=== PATIENT | female | born 1970 | race African-American/Black ===

== ENCOUNTER 2017-04-30 14:14 | Inpatient (IN) | payer OTHER ==
[2017-04-30 16:02] VITALS: BMI 23.6
--- NOTE | 2017-04-30 17:20 | HP ---
Admission [facility] Chief Complaint: REHAB SERVICES Allergies/Adverse Reactions: Allergies Allergy/AdvReac Type Severity Reaction Status Date / Time No Known Allergies Allergy Verified 04/30/17 16:35 History of Present Illness: 46 Y.O. WOMAN WITH A HISTORY OF ALCOHOL, CRACK AND MARIJUANA DEPENDENCE IS HERE SEEKING REHAB SERVICES. SHE REPORTS SHE COMPLETED DETOX AT [facility] ON 03/2017. DOES NOT HAVE A SIGNIFICANT PERIOD CLEAN. Exam Limitations: Physical Impairment - Ebola screening Have you traveled outside of the country in the last 21 days: No Have you had contact with anyone from an Ebola affected area: No Have you been sick,other than usual withdrawal symptoms: No Do you have a fever: No - Review of Systems Constitutional: Unintentional Wgt. Loss EENT: reports: No Symptoms Reported Respiratory: reports: No Symptoms reported Cardiac: reports: No Symptoms Reported GI: reports: No Symptoms Reported : reports: No Symptoms Reported Musculoskeletal: reports: Joint Pain, Other (TORN LIGAMENTS TO B/L KNEES) Integumentary: reports: No Symptoms Reported Neuro: reports: No Symptoms reported Endocrine: reports: No Symptoms Reported Hematology: reports: No Symptoms Reported Psychiatric: reports: Judgement Intact, Mood/Affect Appropiate, Orientated x3, Depressed, other (BIPOLAR) Other Systems: Reviewed and Negative Patient History - Patient Medical History Hx Anemia: No Hx Asthma: No Hx Chronic Obstructive Pulmonary Disease (COPD): No Hx Cancer: No Hx Cardiac Disorders: No Hx Congestive Heart Failure: No Hx Hypertension: Yes Hx Hypercholesterolemia: No Hx Pacemaker: No HX Cerebrovascular Accident: No Hx Seizures: No Hx Dementia: No Hx Diabetes: No Hx Gastrointestinal Disorders: No Hx Liver Disease: No Hx Genitourinary Disorders: No Hx Sexually Transmitted Disorders: No Hx Renal Disease (ESRD): No Hx Thyroid Disease: No Hx Human Immunodeficiency Virus (HIV): Yes (DX: 2007) Hx Hepatitis C: No Hx Depression: Yes Hx Suicide Attempt: No Hx Bipolar Disorder: Yes Hx Schizophrenia: No - Patient Surgical History Past Surgical History: No Hx Neurologic Surgery: No Hx Cataract Extraction: No Hx Cardiac Surgery: No Hx Lung Surgery: No Hx Breast Surgery: No Hx Breast Biopsy: No Hx Abdominal Surgery: No Hx Appendectomy: No Hx Cholecystectomy: No Hx Genitourinary Surgery: No Hx Section: No Hx Orthopedic Surgery: No Anesthesia Reaction: No - PPD History Previous Implant?: Yes Documented Results: Negative w/o proof Implanted On Prior [facility] Admission?: No PPD to be Administered?: Yes - Reproductive History Patient is a Female of Child Bearing Age (11 -55 yrs old): No Last Menstrual Period: 04/30/17 Patient : No - Smoking Cessation Smoking history: Current every day smoker Have you smoked in the past 12 months: Yes Aproximately how many cigarettes per day: 5 Hx Chewing Tobacco Use: No Initiated information on smoking cessation: Yes 'Breaking Loose' booklet given: 04/30/17 - Substance & Tx. History Hx Alcohol Use: Yes Hx Substance Use: Yes Substance Use Type: Alcohol, Cocaine, Marijuana - Substances Abused Crack Route: Smoking Frequency: Daily Amount used: $50 Age of first use: 13 Date of Last Use: 04/28/17 Alcohol-beer Route: Oral Frequency: 1-2 times per week Amount used: 3-4 (22 oz.) Age of first use: 13 Date of Last Use: 05/05/17 Marijuana Route: Smoking Frequency: Daily Amount used: $5 Age of first use: 13 Date of Last Use: 04/30/17 Family Disease History - Family Disease History Family History: Denies Admission Physical Exam S - Vital Signs Vital Signs: Vital Signs - 24 hr 04/30/17 15:55 Temperature 98.3 F Pulse Rate 92 H Respiratory 20 Rate Blood Pressure 104/68 - Physical General Appearance: Yes: Disheveled, Anxious HEENTM: Yes: Hearing grossly Normal, Normal ENT Inspection, Normocephalic Respiratory: Yes: Chest Non-Tender, Lungs Clear, Normal Breath Sounds, No Respiratory Distress Neck: Yes: No masses,lesions,Nodules, Trachea in good position Breast: Yes: Breast Exam Deferred Cardiology: Yes: Regular Rhythm, Regular Rate Abdominal: Yes: Normal Bowel Sounds, Non Tender, Flat Genitourinary: Yes: Other (NO COMPLAINTS REPORTED) Back: Yes: Normal Inspection Musculoskeletal: Yes: Joint Stiffness, Other (UNSTEADY GAIT) Extremities: Yes: Normal Capillary Refill, Normal Inspection, Normal Range of Motion, Non-Tender Neurological: Yes: manager cath lab II-XII NML intact, Fully Oriented, Alert, Motor Strength 5/5, Normal Mood/Affect, Normal Response Integumentary: Yes: Normal Color, Dry, Warm Lymphatic: Yes: Within Normal Limits - Diagnostic (1) Alcohol dependence with uncomplicated withdrawal Current Visit: Yes Status: Chronic (2) Cocaine dependence Current Visit: Yes Status: Chronic (3) Weight loss, unintentional Current Visit: Yes Status: Chronic (4) Cannabis dependence, uncomplicated Current Visit: Yes Status: Chronic (5) HIV (human immunodeficiency virus infection) Current Visit: Yes Status: Chronic (6) Hypertension Current Visit: Yes Status: Chronic (7) Nicotine dependence Current Visit: Yes Status: Chronic Cleared for Admission [facility] - Detox or Rehab [facility] Level of Care: Observation Bed Claeared for Rehab Admission: Yes [facility] Breath Alcohol Content Breath Alcohol Content: 0 Urine Pregancy Test - Result Urine Test Results: Negative- NO Line Present Urine Drug Screen - Results Drug Screen Negative: No Urine Drug Screen Results: THC-Marijuana, NOAH-Cocaine, TCA-Tricyclic Antidepress Inpatient Rehab Admission - Initial Determination Are CD services needed?: Yes Free of communicable disease: No Not in need of hospitalization: Yes - Rehab Admission Criteria Previous failed treatment: Yes Poor recovery environment: Yes Comorbidities: Yes Lacks judgement: No Patient is meeting Inpatient Rehab admission criteria:: Yes
[2017-04-30] MEDS ORDERED: guaiFENesin/D-METHORPHAN HB 10 ML UNIT-DOSE CUPS PO PRN (17:34)
[2017-04-30] MEDS ORDERED: MAG HYDROX/AL HYDROX/SIMETH 30 ML UNIT-DOSE CUP PO PRN (17:34)
[2017-04-30] MEDS ORDERED: LOPERAMIDE HCL 2 MG CAPSULE PO PRN (17:34)
[2017-04-30] MEDS ORDERED: MAGNESIUM HYDROX 2400MG/30ML ORAL SUSPENSION 30 ML CUP PO PRN (17:34)
[2017-04-30] MEDS ORDERED: MENTHOL/PHENOL 1 EACH UD MM PRN (17:34)
[2017-04-30] MEDS ORDERED: IBUPROFEN 400 MG TABLET (FP) PO PRN (17:34)
[2017-04-30] MEDS ORDERED: MAGNESIUM CITRATE 300 ML BOTTLE PO PRN (17:34)
[2017-04-30] MEDS ORDERED: P-EPHED 60MG/TRIPROLIDI 2.5MG TABLET PO PRN (17:34)
[2017-04-30 20:59] LABS: URINE APPEARANCE TURBID; URINE BILIRUBIN NEGATIVE (NEGATIVE); URINE BLOOD 2+ (NEGATIVE); URINE COLOR YELLOW; URINE GLUCOSE (UA) NEGATIVE (NEGATIVE); URINE KETONE TRACE (NEGATIVE); URINE LEUK ESTERASE TRACE (NEGATIVE); URINE NITRITE NEGATIVE (NEGATIVE)
[2017-04-30 21:01] LABS: URINE PROTEIN 1+ (NEGATIVE)
[2017-04-30 21:28] LABS: AMORP URATES MANY /hpf (NONE SEEN)
[2017-04-30] MEDS: THIAMINE HCL 100 MG TABLET (FP) PO SCH (21:30)
[2017-04-30] MEDS: QUEtiapine FUMARATE 300 MG TABLET PO SCH (21:31)
[2017-04-30] MEDS: PATIENT'S OWN MEDICATION (NON-FORMULARY) (Ibuprofen [Ibuprofen] 800 MG) PO PRN (21:51)
[2017-05-01] MEDS ORDERED: COLLOIDAL OATMEAL 1 BAR EACH TP PRN (00:08)
[2017-05-01] MEDS: QUEtiapine FUMARATE 200 MG TABLET PO SCH (06:49)
[2017-05-01] MEDS: PATIENT'S OWN MEDICATION (NON-FORMULARY) (Ibuprofen [Ibuprofen] 800 MG) PO PRN (06:50)
[2017-05-01] MEDS ORDERED: PT OWN MED DRAWER 7, Y5N ONE (06:51)
[2017-05-01] MEDS: PRENATAL VITAMINS W/ FOLIC ACID TABLET (FP) PO SCH (09:57)
[2017-05-01] MEDS: NIFEdipine E.R. 30 MG TABLET (FP) PO SCH (09:58)
[2017-05-01] MEDS: PATIENT'S OWN MEDICATION (NON-FORMULARY) (Efavirenz/Emtricitab/Tenofovir 1 TAB) PO SCH (09:58)
[2017-05-01] MEDS: [UNRECOGNIZED DRUG - OTHER] PO SCH (09:59)
[2017-05-01] MEDS: CHOLECALCIFEROL PO SCH (09:59)
[2017-05-01] MEDS: NICOTINE 21 MG/24 HOURS TOPICAL PATCH TD SCH (09:59)
[2017-05-01 11:08] LABS: CHLORIDE 107 mmol/L (98-107); SODIUM 139 mmol/L (136-145)
[2017-05-01 11:09] LABS: HEMATOCRIT 38.7 % (32.4-45.2); HEMOGLOBIN 12.1 GM/dL (10.7-15.3); MCH 27.4 pg (25.7-33.7); MCHC 31.2 g/dl (32.0-36.0); MEAN CELL VOLUME 87.7 fl (80-96); MEAN PLT VOLUME 8.7 fl (7.5-11.1); PLATELET COUNT 264 K/MM3 (134-434); RBC 4.41 M/mm3 (3.60-5.2); RDW 15.5 % (11.6-15.6); WHITE BLOOD COUNT 4.4 K/mm3 (4.0-10.0)
[2017-05-01 11:13] LABS: ALBUMIN 3.5 g/dl (3.4-5.0); ALK PHOS 77 U/L (45-117); ANION GAP 7 (8-16); BILIRUBIN,TOTAL 0.2 mg/dL (0.2-1.0); BLOOD UREA NITROGEN 16 mg/dL (7-18); CALCIUM 8.8 mg/dL (8.5-10.1); CO2 25 mmol/L (21-32); CREATININE 0.9 mg/dL (0.55-1.02); GLUCOSE,RANDOM 94 mg/dL (74-106); SGOT/AST 27 U/L (15-37); SGPT/ALT 21 U/L (12-78)
[2017-05-01] MEDS: hydrOXYzine PAMOATE 50 MG CAPSULE (FP) PO PRN ×2 (13:14→18:07)
[2017-05-01] MEDS: ACETAMINOPHEN 325 MG TABLET (FP) PO PRN (13:14)
--- NOTE | 2017-05-01 13:37 | EKG ---
Test Reason : Blood Pressure : / mmHG Vent. Rate : 085 BPM Atrial Rate : 085 BPM P-R Int : 166 ms QRS Dur : 072 ms QT Int : 340 ms P-R-T Axes : 082 058 052 degrees QTc Int : 404 ms NORMAL SINUS RHYTHM POSSIBLE LEFT ATRIAL ENLARGEMENT LEFT VENTRICULAR HYPERTROPHY NONSPECIFIC T WAVE ABNORMALITY ABNORMAL ECG Confirmed by LUCIO DE SOUZA MD ([id number]) on 05/01/2017 1:37:06 PM Referred By: Confirmed By:LUCIO DE SOUZA MD
--- NOTE | 2017-05-01 13:38 | EKG ---
Test Reason : Blood Pressure : / mmHG Vent. Rate : 094 BPM Atrial Rate : 094 BPM P-R Int : 156 ms QRS Dur : 076 ms QT Int : 360 ms P-R-T Axes : 071 047 112 degrees QTc Int : 450 ms NORMAL SINUS RHYTHM MODERATE VOLTAGE CRITERIA FOR LVH, MAY BE NORMAL VARIANT NONSPECIFIC ST ABNORMALITY ABNORMAL ECG NO PREVIOUS ECGS AVAILABLE Confirmed by LUCIO DE SOUZA MD ([id number]) on 05/01/2017 1:37:55 PM Referred By: Confirmed By:LUCIO DE SOUZA MD
[2017-05-01] MEDS: QUEtiapine FUMARATE 300 MG TABLET PO SCH (21:28)
[2017-05-01] MEDS: THIAMINE HCL 100 MG TABLET (FP) PO SCH (21:28)
[2017-05-02] MEDS: QUEtiapine FUMARATE 200 MG TABLET PO SCH (06:55)
[2017-05-02] MEDS: [UNRECOGNIZED DRUG - OTHER] PO SCH (09:51)
[2017-05-02] MEDS: CHOLECALCIFEROL PO SCH (09:51)
[2017-05-02] MEDS: PATIENT'S OWN MEDICATION (NON-FORMULARY) (Efavirenz/Emtricitab/Tenofovir 1 TAB) PO SCH (09:51)
[2017-05-02] MEDS: NIFEdipine E.R. 30 MG TABLET (FP) PO SCH (09:51)
[2017-05-02] MEDS: PRENATAL VITAMINS W/ FOLIC ACID TABLET (FP) PO SCH (09:51)
[2017-05-02] MEDS: NICOTINE 21 MG/24 HOURS TOPICAL PATCH TD SCH (09:52)
[2017-05-02] MEDS: hydrOXYzine PAMOATE 50 MG CAPSULE (FP) PO PRN ×2 (10:40→15:49)
[2017-05-02] MEDS: PATIENT'S OWN MEDICATION (NON-FORMULARY) (Ibuprofen [Ibuprofen] 800 MG) PO PRN (10:40)
[2017-05-02] MEDS: ACETAMINOPHEN 325 MG TABLET (FP) PO PRN (15:49)
[2017-05-02] MEDS: THIAMINE HCL 100 MG TABLET (FP) PO SCH (21:22)
[2017-05-02] MEDS: QUEtiapine FUMARATE 300 MG TABLET PO SCH (21:22)
[2017-05-03] MEDS: QUEtiapine FUMARATE 200 MG TABLET PO SCH (06:05)
[2017-05-03] MEDS: [UNRECOGNIZED DRUG - OTHER] PO SCH (10:41)
[2017-05-03] MEDS: PATIENT'S OWN MEDICATION (NON-FORMULARY) (Efavirenz/Emtricitab/Tenofovir 1 TAB) PO SCH (10:41)
[2017-05-03] MEDS: CHOLECALCIFEROL PO SCH (10:41)
[2017-05-03] MEDS: PRENATAL VITAMINS W/ FOLIC ACID TABLET (FP) PO SCH (10:41)
[2017-05-03] MEDS: NIFEdipine E.R. 30 MG TABLET (FP) PO SCH (10:41)
[2017-05-03] MEDS: NICOTINE 21 MG/24 HOURS TOPICAL PATCH TD SCH (10:42)
[2017-05-03] MEDS ORDERED: PT OWN MED DRAWER 7, Y5N ONE ×2 (10:49→12:16)
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
[2017-05-03] MEDS: hydrOXYzine PAMOATE 50 MG CAPSULE (FP) PO PRN ×2 (12:17→21:25)
[2017-05-03] MEDS: PATIENT'S OWN MEDICATION (NON-FORMULARY) (Ibuprofen [Ibuprofen] 800 MG) PO PRN (12:17)
[2017-05-03] MEDS: THIAMINE HCL 100 MG TABLET (FP) PO SCH (21:24)
[2017-05-03] MEDS: QUEtiapine FUMARATE 300 MG TABLET PO SCH (21:24)
[2017-05-04] MEDS: QUEtiapine FUMARATE 200 MG TABLET PO SCH (06:33)
[2017-05-04] MEDS ORDERED: cloNIDine HCL 0.1 MG TABLET PO ONE (07:28)
[2017-05-04] MEDS: CHOLECALCIFEROL PO SCH (10:16)
[2017-05-04] MEDS: PATIENT'S OWN MEDICATION (NON-FORMULARY) (Efavirenz/Emtricitab/Tenofovir 1 TAB) PO SCH (10:16)
[2017-05-04] MEDS: [UNRECOGNIZED DRUG - OTHER] PO SCH (10:16)
[2017-05-04] MEDS: PRENATAL VITAMINS W/ FOLIC ACID TABLET (FP) PO SCH (10:17)
[2017-05-04] MEDS: NICOTINE 21 MG/24 HOURS TOPICAL PATCH TD SCH (10:17)
[2017-05-04] MEDS: NIFEdipine E.R. 30 MG TABLET (FP) PO SCH (10:17)
[2017-05-04] MEDS: hydrOXYzine PAMOATE 50 MG CAPSULE (FP) PO PRN ×2 (10:19→21:26)
[2017-05-04] MEDS: QUEtiapine FUMARATE 300 MG TABLET PO SCH (21:26)
[2017-05-04] MEDS: THIAMINE HCL 100 MG TABLET (FP) PO SCH (21:26)
[2017-05-05] MEDS ORDERED: cloNIDine HCL 0.1 MG TABLET PO ONE (06:23)
[2017-05-05] MEDS ORDERED: cloNIDine HCL 0.1 MG TABLET PO PRN (06:23)
[2017-05-05] MEDS: QUEtiapine FUMARATE 200 MG TABLET PO SCH (06:28)
[2017-05-05] MEDS: hydrOXYzine PAMOATE 50 MG CAPSULE (FP) PO PRN ×3 (06:28→21:28)
[2017-05-05] MEDS: PATIENT'S OWN MEDICATION (NON-FORMULARY) (Ibuprofen [Ibuprofen] 800 MG) PO PRN ×2 (09:43→21:57)
[2017-05-05] MEDS: PRENATAL VITAMINS W/ FOLIC ACID TABLET (FP) PO SCH (09:44)
[2017-05-05] MEDS: [UNRECOGNIZED DRUG - OTHER] PO SCH (09:44)
[2017-05-05] MEDS: PATIENT'S OWN MEDICATION (NON-FORMULARY) (Efavirenz/Emtricitab/Tenofovir 1 TAB) PO SCH (09:44)
[2017-05-05] MEDS: CHOLECALCIFEROL PO SCH (09:44)
[2017-05-05] MEDS: NICOTINE 21 MG/24 HOURS TOPICAL PATCH TD SCH (09:44)
[2017-05-05] MEDS: NIFEdipine E.R. 30 MG TABLET (FP) PO SCH (09:44)
[2017-05-05] MEDS: THIAMINE HCL 100 MG TABLET (FP) PO SCH (21:28)
[2017-05-05] MEDS: QUEtiapine FUMARATE 300 MG TABLET PO SCH (21:28)
[2017-05-05] MEDS ORDERED: PT OWN MED DRAWER 7, Y5N ONE (21:56)
[2017-05-06] MEDS: QUEtiapine FUMARATE 200 MG TABLET PO SCH (07:00)
[2017-05-06] MEDS: hydrOXYzine PAMOATE 50 MG CAPSULE (FP) PO PRN ×2 (07:00→21:19)
[2017-05-06] MEDS: PRENATAL VITAMINS W/ FOLIC ACID TABLET (FP) PO SCH (10:16)
[2017-05-06] MEDS: PATIENT'S OWN MEDICATION (NON-FORMULARY) (Efavirenz/Emtricitab/Tenofovir 1 TAB) PO SCH (10:17)
[2017-05-06] MEDS: NICOTINE 21 MG/24 HOURS TOPICAL PATCH TD SCH (10:17)
[2017-05-06] MEDS: CHOLECALCIFEROL PO SCH (10:17)
[2017-05-06] MEDS: NIFEdipine E.R. 30 MG TABLET (FP) PO SCH (10:17)
[2017-05-06] MEDS: [UNRECOGNIZED DRUG - OTHER] PO SCH (10:17)
[2017-05-06] MEDS: PANTOPRAZOLE 40 MG TABLET (FP) PO SCH (14:42)
[2017-05-06] MEDS: NAPROXEN 500 MG TABLET (FP) PO SCH ×2 (14:42→21:19)
[2017-05-06] MEDS: GABAPENTIN 100 MG CAPSULE (FP) PO SCH ×2 (14:43→21:19)
[2017-05-06] MEDS: CYCLOBENZAPRINE HCL 10 MG TABLET (FP) PO SCH ×2 (14:43→21:19)
[2017-05-06] MEDS ORDERED: PT OWN MED DRAWER 7, Y5N ONE (14:46)
[2017-05-06] MEDS: QUEtiapine FUMARATE 300 MG TABLET PO SCH (21:19)
[2017-05-06] MEDS: cloNIDine HCL 0.1 MG TABLET PO SCH (21:19)
[2017-05-06] MEDS: THIAMINE HCL 100 MG TABLET (FP) PO SCH (21:19)
--- NOTE | 2017-05-06 21:51 | PN ---
YONI Progress Note Note: INFORMED BY RN CLIENT FELL. CLIENT STATES SHE LOST HER BALANCE AND SLIPPED AND FELL ON HER BUTTOCKS. DENIES HEAD TRAUMA, C/O CHRONIC KNEE PAIN. A/O X 3 NAD NO PHYSICAL INJURIES NOTED SKIN INTACT FROM X4 NO LIMITATION NOTED CANE NOTED AT BEDSIDE. Vital Signs - 24 hr 05/06/17 05/06/17 05/06/17 07:37 09:15 21:49 Temperature 97.8 F 98.3 F Pulse Rate 76 114 H 89 Respiratory 18 20 Rate Blood Pressure 137/94 128/77 143/88 05/06/17 05/07/17 05/07/17 22:22 00:15 00:30 Temperature 98.3 F Pulse Rate 89 78 Respiratory 20 18 Rate Blood Pressure 143/88 140/80 05/07/17 05/07/17 02:15 03:30 Temperature 97.4 F L Pulse Rate 81 Respiratory 19 18 Rate Blood Pressure 143/82 S/P REPORTED FALL FALL PROTOCOL #2
[2017-05-07] MEDS: GABAPENTIN 100 MG CAPSULE (FP) PO SCH ×3 (06:57→21:19)
[2017-05-07] MEDS: CYCLOBENZAPRINE HCL 10 MG TABLET (FP) PO SCH ×3 (06:57→21:19)
[2017-05-07] MEDS: QUEtiapine FUMARATE 200 MG TABLET PO SCH (06:57)
[2017-05-07] MEDS: hydrOXYzine PAMOATE 50 MG CAPSULE (FP) PO PRN (06:58)
[2017-05-07] MEDS ORDERED: PT OWN MED DRAWER 7, Y5N ONE ×2 (08:14→15:21)
[2017-05-07] MEDS: [UNRECOGNIZED DRUG - OTHER] PO SCH (09:44)
[2017-05-07] MEDS: CHOLECALCIFEROL PO SCH (09:44)
[2017-05-07] MEDS: PRENATAL VITAMINS W/ FOLIC ACID TABLET (FP) PO SCH (09:44)
[2017-05-07] MEDS: NAPROXEN 500 MG TABLET (FP) PO SCH ×2 (09:44→21:19)
[2017-05-07] MEDS: PATIENT'S OWN MEDICATION (NON-FORMULARY) (Efavirenz/Emtricitab/Tenofovir 1 TAB) PO SCH (09:44)
[2017-05-07] MEDS: PANTOPRAZOLE 40 MG TABLET (FP) PO SCH (09:45)
[2017-05-07] MEDS: NIFEdipine E.R. 30 MG TABLET (FP) PO SCH (09:45)
[2017-05-07] MEDS: NICOTINE 21 MG/24 HOURS TOPICAL PATCH TD SCH (09:45)
[2017-05-07] MEDS: cloNIDine HCL 0.1 MG TABLET PO SCH ×2 (09:45→21:19)
[2017-05-07] MEDS: THIAMINE HCL 100 MG TABLET (FP) PO SCH (21:18)
[2017-05-07] MEDS: QUEtiapine FUMARATE 300 MG TABLET PO SCH (21:18)
[2017-05-07] MEDS: MICONAZOLE NITRATE 100 MG SUPP SUPP.VAG PV SCH (21:20)
[2017-05-08] MEDS: GABAPENTIN 100 MG CAPSULE (FP) PO SCH ×3 (07:10→21:16)
[2017-05-08] MEDS: QUEtiapine FUMARATE 200 MG TABLET PO SCH (07:10)
[2017-05-08] MEDS: CYCLOBENZAPRINE HCL 10 MG TABLET (FP) PO SCH ×3 (07:10→21:16)
[2017-05-08] MEDS: PANTOPRAZOLE 40 MG TABLET (FP) PO SCH (10:03)
[2017-05-08] MEDS: NAPROXEN 500 MG TABLET (FP) PO SCH ×2 (10:03→21:16)
[2017-05-08] MEDS: PRENATAL VITAMINS W/ FOLIC ACID TABLET (FP) PO SCH (10:03)
[2017-05-08] MEDS: NIFEdipine E.R. 30 MG TABLET (FP) PO SCH (10:03)
[2017-05-08] MEDS: cloNIDine HCL 0.1 MG TABLET PO SCH ×2 (10:03→21:16)
[2017-05-08] MEDS: PATIENT'S OWN MEDICATION (NON-FORMULARY) (Efavirenz/Emtricitab/Tenofovir 1 TAB) PO SCH (10:04)
[2017-05-08] MEDS: NICOTINE 21 MG/24 HOURS TOPICAL PATCH TD SCH (10:04)
[2017-05-08] MEDS: [UNRECOGNIZED DRUG - OTHER] PO SCH (10:06)
[2017-05-08] MEDS: CHOLECALCIFEROL PO SCH (10:06)
[2017-05-08] MEDS ORDERED: PT OWN MED DRAWER 7, Y5N ONE (10:07)
[2017-05-08] MEDS: hydrOXYzine PAMOATE 50 MG CAPSULE (FP) PO PRN (10:08)
[2017-05-08] MEDS: THIAMINE HCL 100 MG TABLET (FP) PO SCH (21:16)
[2017-05-08] MEDS: QUEtiapine FUMARATE 300 MG TABLET PO SCH (21:16)
[2017-05-08] MEDS: MICONAZOLE NITRATE 100 MG SUPP SUPP.VAG PV SCH (21:17)
[2017-05-09] MEDS: GABAPENTIN 100 MG CAPSULE (FP) PO SCH ×3 (06:55→21:22)
[2017-05-09] MEDS: QUEtiapine FUMARATE 200 MG TABLET PO SCH (06:55)
[2017-05-09] MEDS: CYCLOBENZAPRINE HCL 10 MG TABLET (FP) PO SCH ×3 (06:55→21:22)
[2017-05-09] MEDS: cloNIDine HCL 0.1 MG TABLET PO SCH ×2 (09:48→21:22)
[2017-05-09] MEDS: NIFEdipine E.R. 30 MG TABLET (FP) PO SCH (09:49)
[2017-05-09] MEDS: PRENATAL VITAMINS W/ FOLIC ACID TABLET (FP) PO SCH (09:49)
[2017-05-09] MEDS: PATIENT'S OWN MEDICATION (NON-FORMULARY) (Efavirenz/Emtricitab/Tenofovir 1 TAB) PO SCH (09:49)
[2017-05-09] MEDS: CHOLECALCIFEROL PO SCH (09:49)
[2017-05-09] MEDS: PANTOPRAZOLE 40 MG TABLET (FP) PO SCH (09:49)
[2017-05-09] MEDS: NAPROXEN 500 MG TABLET (FP) PO SCH ×2 (09:49→21:22)
[2017-05-09] MEDS: [UNRECOGNIZED DRUG - OTHER] PO SCH (09:49)
[2017-05-09] MEDS: NICOTINE 21 MG/24 HOURS TOPICAL PATCH TD SCH (09:50)
[2017-05-09] MEDS: hydrOXYzine PAMOATE 50 MG CAPSULE (FP) PO PRN ×2 (13:07→21:25)
[2017-05-09] MEDS: THIAMINE HCL 100 MG TABLET (FP) PO SCH (21:22)
[2017-05-09] MEDS: QUEtiapine FUMARATE 300 MG TABLET PO SCH (21:22)
[2017-05-09] MEDS: MICONAZOLE NITRATE 100 MG SUPP SUPP.VAG PV SCH (21:24)
[2017-05-10] MEDS: QUEtiapine FUMARATE 200 MG TABLET PO SCH (06:19)
[2017-05-10] MEDS: GABAPENTIN 100 MG CAPSULE (FP) PO SCH ×3 (06:19→21:21)
[2017-05-10] MEDS: CYCLOBENZAPRINE HCL 10 MG TABLET (FP) PO SCH ×3 (06:19→21:21)
[2017-05-10] MEDS: NAPROXEN 500 MG TABLET (FP) PO SCH ×2 (09:38→21:21)
[2017-05-10] MEDS: CHOLECALCIFEROL PO SCH (09:38)
[2017-05-10] MEDS: PATIENT'S OWN MEDICATION (NON-FORMULARY) (Efavirenz/Emtricitab/Tenofovir 1 TAB) PO SCH (09:38)
[2017-05-10] MEDS: [UNRECOGNIZED DRUG - OTHER] PO SCH (09:38)
[2017-05-10] MEDS: cloNIDine HCL 0.1 MG TABLET PO SCH ×2 (09:38→21:21)
[2017-05-10] MEDS: PRENATAL VITAMINS W/ FOLIC ACID TABLET (FP) PO SCH (09:38)
[2017-05-10] MEDS: PANTOPRAZOLE 40 MG TABLET (FP) PO SCH (09:38)
[2017-05-10] MEDS: NIFEdipine E.R. 30 MG TABLET (FP) PO SCH (09:39)
[2017-05-10] MEDS: NICOTINE 21 MG/24 HOURS TOPICAL PATCH TD SCH (09:39)
[2017-05-10] MEDS: hydrOXYzine PAMOATE 50 MG CAPSULE (FP) PO PRN ×2 (14:28→21:23)
[2017-05-10] MEDS: THIAMINE HCL 100 MG TABLET (FP) PO SCH (21:21)
[2017-05-10] MEDS: QUEtiapine FUMARATE 300 MG TABLET PO SCH (21:21)
[2017-05-10] MEDS: MICONAZOLE NITRATE 100 MG SUPP SUPP.VAG PV SCH (21:22)
[2017-05-11] MEDS: QUEtiapine FUMARATE 200 MG TABLET PO SCH (06:30)
[2017-05-11] MEDS: GABAPENTIN 100 MG CAPSULE (FP) PO SCH ×3 (06:30→21:29)
[2017-05-11] MEDS: CYCLOBENZAPRINE HCL 10 MG TABLET (FP) PO SCH ×3 (06:30→21:28)
[2017-05-11] MEDS: PANTOPRAZOLE 40 MG TABLET (FP) PO SCH (10:22)
[2017-05-11] MEDS: NAPROXEN 500 MG TABLET (FP) PO SCH ×2 (10:22→21:28)
[2017-05-11] MEDS: NIFEdipine E.R. 30 MG TABLET (FP) PO SCH (10:23)
[2017-05-11] MEDS: PATIENT'S OWN MEDICATION (NON-FORMULARY) (Efavirenz/Emtricitab/Tenofovir 1 TAB) PO SCH (10:23)
[2017-05-11] MEDS: cloNIDine HCL 0.1 MG TABLET PO SCH ×2 (10:23→21:29)
[2017-05-11] MEDS: CHOLECALCIFEROL PO SCH (10:23)
[2017-05-11] MEDS: [UNRECOGNIZED DRUG - OTHER] PO SCH (10:23)
[2017-05-11] MEDS: PRENATAL VITAMINS W/ FOLIC ACID TABLET (FP) PO SCH (10:23)
[2017-05-11] MEDS: NICOTINE 21 MG/24 HOURS TOPICAL PATCH TD SCH (10:24)
[2017-05-11] MEDS ORDERED: PT OWN MED DRAWER 7, Y5N ONE (12:00)
[2017-05-11] MEDS: THIAMINE HCL 100 MG TABLET (FP) PO SCH (21:27)
[2017-05-11] MEDS: hydrOXYzine PAMOATE 50 MG CAPSULE (FP) PO PRN (21:28)
[2017-05-11] MEDS: QUEtiapine FUMARATE 300 MG TABLET PO SCH (21:28)
[2017-05-11] MEDS: MICONAZOLE NITRATE 100 MG SUPP SUPP.VAG PV SCH (21:29)
[2017-05-12] MEDS: CYCLOBENZAPRINE HCL 10 MG TABLET (FP) PO SCH ×3 (06:45→21:22)
[2017-05-12] MEDS: GABAPENTIN 100 MG CAPSULE (FP) PO SCH ×3 (06:45→21:22)
[2017-05-12] MEDS: QUEtiapine FUMARATE 200 MG TABLET PO SCH (06:45)
[2017-05-12] MEDS ORDERED: cloNIDine HCL 0.1 MG TABLET PO ONE (07:15)
[2017-05-12] MEDS: cloNIDine HCL 0.1 MG TABLET PO SCH ×2 (09:42→21:22)
[2017-05-12] MEDS: [UNRECOGNIZED DRUG - OTHER] PO SCH (09:42)
[2017-05-12] MEDS: PATIENT'S OWN MEDICATION (NON-FORMULARY) (Efavirenz/Emtricitab/Tenofovir 1 TAB) PO SCH (09:42)
[2017-05-12] MEDS: PRENATAL VITAMINS W/ FOLIC ACID TABLET (FP) PO SCH (09:42)
[2017-05-12] MEDS: CHOLECALCIFEROL PO SCH (09:42)
[2017-05-12] MEDS: NAPROXEN 500 MG TABLET (FP) PO SCH ×2 (09:42→21:22)
[2017-05-12] MEDS: NICOTINE 21 MG/24 HOURS TOPICAL PATCH TD SCH (09:43)
[2017-05-12] MEDS: NIFEdipine E.R. 30 MG TABLET (FP) PO SCH (09:43)
[2017-05-12] MEDS: PANTOPRAZOLE 40 MG TABLET (FP) PO SCH (09:43)
[2017-05-12] MEDS: hydrOXYzine PAMOATE 50 MG CAPSULE (FP) PO PRN ×2 (14:01→18:35)
--- NOTE | 2017-05-12 15:30 | PN ---
Psychiatric Progress Note Vital Signs: Vital Signs Period Temp Pulse Resp BP Sys/Ibarra Pulse Ox Last 24 Hr 97.9 F 77 16-18 153/103 Date of Session: 05/12/17 Chief Complaint:: Discharge visit HPI: Alcohol,Cocaine and Cannabis dependence comorbid with Bipolar disorder, PTSD. ROS: Significant for HIV+,HTN. Current Medications: Active Medications Generic Name Dose Route Start Last Admin Trade Name Freq PRN Reason Stop Dose Admin Acetaminophen 650 mg 04/30/17 17:34 05/02/17 15:49 Tylenol - PO 650 mg Q4H PRN Administration PAIN Al Hydroxide/Mg Hydroxide 30 ml 04/30/17 17:34 Mylanta Oral Suspension - PO Q6H PRN DYSPEPSIA Clonidine 0.1 mg 05/06/17 22:00 05/12/17 09:42 Catapres - PO Not Given BID WILLEM Colloidal Oatmeal 1 applic 05/01/17 00:08 05/01/17 13:12 Aveeno Soap - TP 1 bar DAILY PRN Administration HYGEINE Cyclobenzaprine HCl 10 mg 05/06/17 14:00 05/12/17 14:01 Flexeril - PO 10 mg TID WILLEM Administration Eucalyptus/Menthol/Phenol/Sorbitol 1 each 04/30/17 17:34 Cepastat Lozenge - MM Q4H PRN SORE THROAT Gabapentin 100 mg 05/06/17 14:00 05/12/17 14:01 Neurontin - PO 100 mg TID WILLEM Administration Guaifenesin 10 ml 04/30/17 17:34 Robitussin Dm - PO Q6H PRN COUGH Hydroxyzine Pamoate 50 mg 04/30/17 17:34 05/12/17 14:01 Vistaril - PO 50 mg Q4H PRN Administration AGITATION Loperamide HCl 4 mg 04/30/17 17:34 Imodium - PO Q6H PRN DIARRHEA Magnesium Citrate 300 ml 04/30/17 17:34 Citroma - PO Q48H PRN CONSTIPATION Magnesium Hydroxide 30 ml 04/30/17 17:34 05/02/17 21:23 Milk Of Magnesia - PO 30 ml DAILY PRN Administration CONSTIPATION Miconazole Nitrate 100 mg 05/07/17 22:00 05/11/17 21:29 Monistat-7 Vaginal Suppository - PV 1 applic HS WILLEM Administration Naproxen 500 mg 05/06/17 13:45 05/12/17 09:42 Naprosyn - PO 500 mg BID WILLEM Administration Nicotine 21 mg 05/01/17 10:00 05/12/17 09:43 Nicoderm Patch - TD 21 mg DAILY WILLEM Administration Nifedipine 30 mg 05/01/17 10:00 05/12/17 09:43 Procardia Xl - PO 30 mg DAILY WILLEM Administration Non-Formulary Medication 1,000 unit 05/01/17 10:00 05/12/17 09:42 Cholecalciferol (Vitamin D3) [Vitamin D -] PO 1,000 unit DAILY WILLEM Administration Non-Formulary Medication 1 tab 05/01/17 10:00 05/12/17 09:42 Efavirenz/Emtricitab/Tenofovir PO 1 tab DAILY WILLEM Administration Pantoprazole Sodium 40 mg 05/06/17 13:54 05/12/17 09:43 Protonix - PO 40 mg DAILY WILLEM Administration Multivit/Folic Acid/Iron 1 tab 05/01/17 10:00 05/12/17 09:42 Vitamins ([facility]) - PO 1 tab DAILY WILLEM Administration Pseudoephedrine/Triprolidine 1 combo 04/30/17 17:34 Actifed - PO TID PRN NASAL CONGESTION Quetiapine Fumarate 200 mg 05/01/17 07:00 05/12/17 06:45 Seroquel - PO 200 mg AM WILLEM Administration Quetiapine Fumarate 300 mg 04/30/17 22:00 05/11/17 21:28 Seroquel - PO 300 mg HS WILLEM Administration Thiamine HCl 100 mg 04/30/17 22:00 05/11/17 21:27 Vitamin B1 - PO 100 mg HS WILLEM Administration Current Side Effect: No Lab tests ordered: No Lab tests reviewed: Yes Provider note:: patient will complete this program tomorrow 05/13/17.She [facility] and jeff continue to address her issues on outpatient basis at Patient reports finding that Seroquel 200 mg po am and 300 mg po hs help to cope with anxiety,mood instability and sleeping difficulties.Scripts for 30 days provided. Patient identifies areas of difficulties and ways,coping skills she can utlize to maintain recovery. Patient is stable for discharge tomorrow. Total face to face time:: 25 Mental Status Exam - Mental Status Exam Alert and Oriented to: Time Cognitive Function: Grossly Intact Patient Appearance: Well Groomed Mood: Hopeful, Euthymic Affect: Appropriate, Mood Congruent Patient Behavior: Cooperative Speech Pattern: Clear Voice Loudness: Normal Thought Process: Goal Oriented Thought Disorder: Not Present Hallucinations: Denies Suicidal Ideation: Denies Homicidal Ideation: Denies Insight/Judgement: Fair Sleep: Fair Appetite: Good Muscle strength/Tone: Normal Gait/Station: Normal
[2017-05-12] MEDS: THIAMINE HCL 100 MG TABLET (FP) PO SCH (21:22)
[2017-05-12] MEDS: QUEtiapine FUMARATE 300 MG TABLET PO SCH (21:22)
[2017-05-12] MEDS: MICONAZOLE NITRATE 100 MG SUPP SUPP.VAG PV SCH (21:23)
[2017-05-13] MEDS: CYCLOBENZAPRINE HCL 10 MG TABLET (FP) PO SCH (06:17)
[2017-05-13] MEDS: QUEtiapine FUMARATE 200 MG TABLET PO SCH (06:17)
[2017-05-13] MEDS: GABAPENTIN 100 MG CAPSULE (FP) PO SCH (06:17)
[2017-05-13 06:58] VITALS: TEMP 97.5
[2017-05-13] MEDS: PATIENT'S OWN MEDICATION (NON-FORMULARY) (Efavirenz/Emtricitab/Tenofovir 1 TAB) PO SCH (09:01)
[2017-05-13] MEDS: CHOLECALCIFEROL PO SCH (09:01)
[2017-05-13] MEDS: [UNRECOGNIZED DRUG - OTHER] PO SCH (09:01)
[2017-05-13] MEDS: NIFEdipine E.R. 30 MG TABLET (FP) PO SCH (09:01)
[2017-05-13] MEDS: cloNIDine HCL 0.1 MG TABLET PO SCH (09:02)
[2017-05-13] MEDS: NICOTINE 21 MG/24 HOURS TOPICAL PATCH TD SCH (09:02)
[2017-05-13] MEDS: PANTOPRAZOLE 40 MG TABLET (FP) PO SCH (09:02)
[2017-05-13] MEDS: PRENATAL VITAMINS W/ FOLIC ACID TABLET (FP) PO SCH (09:02)
[2017-05-13] MEDS: NAPROXEN 500 MG TABLET (FP) PO SCH (09:02)
[2017-05-13 09:16] VITALS: BP 132/86; PULSE 105
== END 2017-05-13 09:15 | disposition home or self-care (01) | DRG 772 ==
LOC: YASAS 14:14 → Y3E 16:57
PROVIDERS: ADMIT Psychiatry & Neurology Psychiatry; ATTEND Psychiatry & Neurology Psychiatry
PROC: HZ42ZZZ Group Counseling for Substance Abuse Treatment, Cognitive-Behavioral (ICD-10-PCS; principal; 2017-04-30)
DX: F10.20 Alcohol dependence, uncomplicated (principal); F14.20 Cocaine dependence, uncomplicated; F12.20 Cannabis dependence, uncomplicated; F17.210 Nicotine dependence, cigarettes, uncomplicated; F31.81 Bipolar II disorder; I10 Essential (primary) hypertension; Z21 Asymptomatic human immunodeficiency virus [HIV] infection status; Z87.898 Personal history of other specified conditions
CPT/HCPCS: 36415; 80053; 81003; 81015; 85027; 86593; 93005; 93010

== ENCOUNTER 2018-05-07 13:19 | Inpatient (IN) | payer OTHER ==
[2018-05-07 14:54] VITALS: BMI 25.0
--- NOTE | 2018-05-07 16:49 | HP ---
"CIWA Score Nausea/Vomitin-No Nausea/No Vomiting Muscle Tremors: 4-Moderate,w/Arms Extend Anxiety: 2 Agitation: 1-Slight > Activity Paroxysmal Sweats: No Perspiration Orientation: 0-Oriented Tacttile Disturbances: 0-None Auditory Disturbances: 0-None Visual Disturbances: 2-Mild Sensitivity Headache: 4-Moderately Severe CIWA-Ar Total Score: 13 - Admission Criteria [facility] Guidelines: Admission for Medically Managed Detox: Requires at least one of the followin. CIWA greater than 12 2. Seizures within the past 24 hours 3. Delirium tremens within the past 24 hours 4. Hallucinations within the past 24 hours 5. Acute intervention needed for co occurring medical disorder 6. Acute intervention needed for co occurring psychiatric disorder 7. Severe withdrawal that cannot be handled at a lower level of care (continued vomiting, continued diarrhea, abnormal vital signs) requiring intravenous medication and/or fluids 8. Patient presents the following: CIWA greater than 12 Admission Criteria Met: Admission criteria met Admission ROS [facility] Allergies/Adverse Reactions: Allergies Allergy/AdvReac Type Severity Reaction Status Date / Time No Known Allergies Allergy Verified 04/30/17 16:35 History of Present Illness: patient here requesting detox from etoh use 6 x 40-oz /day x 3 days relapse , reports tremors is not drinking , denies prior seizures , denies blackouts , starts drinking in the mornings to stop tremors, first age of use 13 , increased since 2012 since her son was murdered at age 18 , binge-drinking intermittently since , prior detox at this facility 2 years ago, completed rehab . cocaine : 200 $ /day cannabis : 50 $/day tobacco : 5 /day PMHx : htn , hiv ( dx 2007 , rf [facility] , [facility] ) , knee chronic pain greg/ OA states needs knee replacement , chronic LBP . Psych : bipolar d/o , depression PShx : denies SHx : lives alone , on SSI for MH and leg disability meds : see list . i-stop : This report was requested by: Anne Kincaid | Reference #: [id number] Others' Prescriptions Patient Name: Nadine Gonzalez Date: 1970 Address: [address] [place] [address] Sex: Female Rx Written Rx Dispensed Drug Quantity Days Supply Prescriber Name 12/20/2017 12/21/2017 tramadol hcl 50 mg tablet 240 30 Roberto Carlos, Franky HE 12/13/2017 12/13/2017 tramadol hcl 50 mg tablet 28 7 Roberto Carlos, Franky HE 10/12/2017 10/13/2017 clonazepam 1 mg tablet 60 30 Alvarado Kendall MD 06/21/2017 06/21/2017 oxycodone-acetaminophen 10-325 mg tab 12 3 Micaela Patel 05/17/2017 05/17/2017 oxycodone-acetaminophen 10-325 mg tab 12 3 Micaela Patel Exam Limitations: No Limitations - Ebola screening Have you traveled outside of the country in the last 21 days: No (N) Have you had contact with anyone from an Ebola affected area: No Have you been sick,other than usual withdrawal symptoms: No Do you have a fever: No - Review of Systems Constitutional: See HPI EENT: reports: Other (reading glasses , denies dysphagia , dentures) Respiratory: reports: No Symptoms reported Cardiac: reports: No Symptoms Reported GI: reports: No Symptoms Reported : reports: No Symptoms Reported Musculoskeletal: reports: See HPI, Joint Pain Integumentary: reports: No Symptoms Reported Neuro: reports: Headache, Pre-Existing Deficit, Unsteady Gait Endocrine: reports: No Symptoms Reported Psychiatric: reports: Orientated x3, other (see HPI) Patient History - Patient Medical History Hx Anemia: No Hx Asthma: No Hx Chronic Obstructive Pulmonary Disease (COPD): No Hx Cancer: No Hx Cardiac Disorders: No Hx Congestive Heart Failure: No Hx Hypertension: Yes Hx Hypercholesterolemia: No Hx Pacemaker: No HX Cerebrovascular Accident: No Hx Seizures: No Hx Dementia: No Hx Diabetes: No Hx Gastrointestinal Disorders: No Hx Liver Disease: No Hx Genitourinary Disorders: No Hx Sexually Transmitted Disorders: No Hx Renal Disease (ESRD): No Hx Thyroid Disease: No Hx Human Immunodeficiency Virus (HIV): Yes (DX: 2007) Hx Hepatitis C: No Hx Depression: Yes Hx Suicide Attempt: No Hx Bipolar Disorder: Yes Hx Schizophrenia: No - Patient Surgical History Past Surgical History: No Hx Neurologic Surgery: No Hx Cataract Extraction: No Hx Cardiac Surgery: No Hx Lung Surgery: No Hx Breast Surgery: No Hx Breast Biopsy: No Hx Abdominal Surgery: No Hx Appendectomy: No Hx Cholecystectomy: No Hx Genitourinary Surgery: No Hx Section: No Hx Orthopedic Surgery: No Anesthesia Reaction: No - PPD History Date: 05/02/17 - Reproductive History Last Menstrual Period: 04/30/17 - Smoking Cessation Smoking history: Current every day smoker Have you smoked in the past 12 months: Yes Aproximately how many cigarettes per day: 5 Hx Chewing Tobacco Use: No Initiated information on smoking cessation: No Family Disease History - Family Disease History Family History: Denies Admission Physical Exam S - Vital Signs Vital Signs: Vital Signs - 24 hr 05/07/18 14:52 Temperature 97.1 F L Pulse Rate 118 H Respiratory 18 Rate Blood Pressure 110/80 - Physical General Appearance: Yes: Disheveled, Mild Distress HEENTM: Yes: EOMI, Hearing grossly Normal, Normocephalic, Normal Voice Respiratory: Yes: Chest Non-Tender, Lungs Clear, Normal Breath Sounds Neck: Yes: No masses,lesions,Nodules, Trachea in good position Breast: Yes: Breast Exam Deferred Cardiology: Yes: Regular Rhythm, Regular Rate, S1, S2, Tachycardia Abdominal: Yes: Normal Bowel Sounds, Soft Genitourinary: Yes: Within Normal Limits Musculoskeletal: Yes: Back pain, Joint Stiffness, Other (limping gait) Neurological: Yes: Fully Oriented, Alert, Motor Strength 5/5 Integumentary: Yes: Normal Color, Dry, Warm - Diagnostic (1) Alcohol dependence with uncomplicated withdrawal Current Visit: No Status: Acute (2) Cannabis dependence Current Visit: No Status: Chronic (3) Cocaine dependence Current Visit: No Status: Chronic Qualifiers: Substance use status: uncomplicated Qualified Code(s): F14.20 - Cocaine dependence, uncomplicated (4) Nicotine dependence Current Visit: No Status: Chronic Qualifiers: Nicotine product type: cigarettes Substance use status: uncomplicated Qualified Code(s): F17.210 - Nicotine dependence, cigarettes, uncomplicated [facility] Breath Alcohol Content Breath Alcohol Content: 0 Urine Pregancy Test - Result Urine Test Results: Negative- NO Line Present Urine Drug Screen - Results Drug Screen Negative: No Urine Drug Screen Results: THC-Marijuana, NOAH-Cocaine"
[2018-05-07] MEDS ORDERED: MAGNESIUM CITRATE 300 ML BOTTLE PO PRN (17:09)
[2018-05-07] MEDS ORDERED: P-EPHED 60MG/TRIPROLIDI 2.5MG TABLET PO PRN (17:09)
[2018-05-07] MEDS ORDERED: MAG HYDROX/AL HYDROX/SIMETH 30 ML UNIT-DOSE CUP PO PRN (17:09)
[2018-05-07] MEDS ORDERED: MAGNESIUM HYDROX 2400MG/30ML ORAL SUSPENSION 30 ML CUP PO PRN (17:09)
[2018-05-07] MEDS ORDERED: guaiFENesin/D-METHORPHAN HB 10 ML UNIT-DOSE CUPS PO PRN (17:09)
[2018-05-07] MEDS ORDERED: MENTHOL/PHENOL 1 EACH UD MM PRN (17:09)
[2018-05-07] MEDS ORDERED: NICOTINE POLACRILEX 2 MG GUM BC PRN (17:09)
[2018-05-07] MEDS ORDERED: ALBUTEROL SO4 8 GM HFA INHALER IH PRN (17:33)
[2018-05-07] MEDS ORDERED: ALBUTEROL SO4 0.083% IH SOL 2.5 MG/3 ML VIAL.NEB. NEB PRN (17:33)
[2018-05-07] MEDS ORDERED: BETAMETHASONE VALER 0.1% OINT 15 GM TUBE TP PRN (17:34)
[2018-05-07] MEDS ORDERED: BENZOYL PEROXIDE 5% 60 GM GEL..GRAM. TP ONE (17:36)
[2018-05-07] MEDS ORDERED: CLINDAMYCIN PHOSPHATE 1% TOPICAL GEL 30 GM TUBE TP SCH (22:00)
[2018-05-07] MEDS ORDERED: MELATONIN 5 MG TABLETS PO PRN (22:00)
[2018-05-07] MEDS: THIAMINE HCL 100 MG TABLET (FP) PO SCH (22:21)
[2018-05-07] MEDS: diazePAM 5 MG TABLET PO SCH (22:21)
[2018-05-07] MEDS: IBUPROFEN 400 MG TABLET (FP) PO PRN (22:23)
[2018-05-08] MEDS: diazePAM 5 MG TABLET PO SCH ×3 (05:51→23:18)
[2018-05-08] MEDS ORDERED: LEVOTHYROXINE NA 25 MCG TABLET (FP) PO SCH (07:00)
[2018-05-08] MEDS ORDERED: PANTOPRAZOLE 40 MG TABLET (FP) PO SCH (10:00)
[2018-05-08] MEDS ORDERED: DOLUTEGRAVIR SODIUM 50 MG TABLET (NON-FORMULARY) PO SCH (10:00)
[2018-05-08] MEDS ORDERED: EFAVIRENZ PO SCH (10:00)
[2018-05-08] MEDS ORDERED: EMTRICITABINE 200MG/TENOFOVIR 300MG PO SCH (10:00)
[2018-05-08] MEDS ORDERED: NICOTINE 14 MG/24 HOURS TOPICAL PATCH TD SCH (10:00)
[2018-05-08] MEDS ORDERED: EMTRICITAB PO SCH (10:00)
[2018-05-08] MEDS ORDERED: TENOFOVIR PO SCH (10:00)
[2018-05-08] MEDS: PRENATAL VITAMINS W/ FOLIC ACID TABLET (FP) PO SCH (10:46)
[2018-05-08] MEDS: NIFEdipine E.R. 30 MG TABLET (FP) PO SCH (10:46)
[2018-05-08] MEDS: ACETAMINOPHEN 325 MG TABLET (FP) PO PRN (10:57)
[2018-05-08 11:01] LABS: HEMATOCRIT 36.7 % (32.4-45.2); HEMOGLOBIN 12.2 GM/dL (10.7-15.3); MCH 27.4 pg (25.7-33.7); MCHC 33.1 g/dl (32.0-36.0); MEAN CELL VOLUME 82.7 fl (80-96); MEAN PLT VOLUME 8.5 fl (7.5-11.1); PLATELET COUNT 303 K/MM3 (134-434); RBC 4.44 M/mm3 (3.60-5.2); RDW 19.9 % (11.6-15.6); WHITE BLOOD COUNT 3.5 K/mm3 (4.0-10.0)
--- NOTE | 2018-05-08 11:05 | PN ---
S CIWA - CIWA Score Nausea/Vomitin-Mild Nausea/No Vomiting Muscle Tremors: 3 Anxiety: 1-Mildly Anxious Agitation: 3 Paroxysmal Sweats: 1-Minimal Palms Moist Orientation: 1-Uncertain about Date Tacttile Disturbances: 0-None Auditory Disturbances: 0-None Visual Disturbances: 0-None Headache: 2-Mild CIWA-Ar Total Score: 12 S Progress Note (SOAP) Subjective: patient bought in her own HIV medication, the nurse verified with the [facility] pharmacist over the phone continue use patient's own HIV medication as per ordered tremor anxiety restlessness low energy burning while urination ua ordered begin bactrim ds Objective: 05/08/18 11:08 Vital Signs Temperature 98.1 F 05/08/18 09:54 Pulse Rate 111 H 05/08/18 09:54 Respiratory Rate 18 05/08/18 09:54 Blood Pressure 127/67 05/08/18 09:54 O2 Sat by Pulse Oximetry (%) Laboratory Last Values WBC 3.5 K/mm3 (4.0-10.0) L 05/08/18 07:50 RBC 4.44 M/mm3 (3.60-5.2) 05/08/18 07:50 Hgb 12.2 GM/dL (10.7-15.3) 05/08/18 07:50 Hct 36.7 % (32.4-45.2) 05/08/18 07:50 MCV 82.7 fl (80-96) 05/08/18 07:50 MCH 27.4 pg (25.7-33.7) 05/08/18 07:50 MCHC 33.1 g/dl (32.0-36.0) 05/08/18 07:50 RDW 19.9 % (11.6-15.6) H 05/08/18 07:50 Plt Count 303 K/MM3 (134-434) 05/08/18 07:50 MPV 8.5 fl (7.5-11.1) 05/08/18 07:50 Sodium 139 mmol/L (136-145) 05/08/18 07:50 Potassium 4.3 mmol/L (3.5-5.1) 05/08/18 07:50 Chloride 107 mmol/L (98-107) 05/08/18 07:50 Carbon Dioxide 24 mmol/L (21-32) 05/08/18 07:50 Anion Gap 7 MMOL/L (8-16) L 05/08/18 07:50 BUN 32 mg/dL (7-18) H 05/08/18 07:50 Creatinine 1.3 mg/dL (0.55-1.3) 05/08/18 07:50 Creat Clearance w eGFR 43.90 (>60) 05/08/18 07:50 Random Glucose 115 mg/dL (74-106) H 05/08/18 07:50 Calcium 9.2 mg/dL (8.5-10.1) 05/08/18 07:50 Total Bilirubin 0.2 mg/dL (0.2-1) 05/08/18 07:50 AST 61 U/L (15-37) H 05/08/18 07:50 ALT 41 U/L (13-61) 05/08/18 07:50 Alkaline Phosphatase 114 U/L (45-117) 05/08/18 07:50 Total Protein 7.2 g/dl (6.4-8.2) 05/08/18 07:50 Albumin 3.5 g/dl (3.4-5.0) 05/08/18 07:50 lab noted Assessment: 05/08/18 11:08 withdrawal sx uti Plan: continue detox bactrim ds bid
[2018-05-08 11:06] LABS: ALBUMIN 3.5 g/dl (3.4-5.0); ALK PHOS 114 U/L (45-117); ANION GAP 7 MMOL/L (8-16); BILIRUBIN,TOTAL 0.2 mg/dL (0.2-1); BLOOD UREA NITROGEN 32 mg/dL (7-18); CALCIUM 9.2 mg/dL (8.5-10.1); CHLORIDE 107 mmol/L (98-107); CO2 24 mmol/L (21-32); CREATININE 1.3 mg/dL (0.55-1.3); GLUCOSE,RANDOM 115 mg/dL (74-106); POTASSIUM 4.3 mmol/L (3.5-5.1); SGOT/AST 61 U/L (15-37); SGPT/ALT 41 U/L (13-61); SODIUM 139 mmol/L (136-145); TOT PROT 7.2 g/dl (6.4-8.2)
[2018-05-08] MEDS: EFAVIRENZ PO SCH (11:50)
[2018-05-08] MEDS: EMTRICITABINE PO SCH (11:50)
[2018-05-08] MEDS: [UNRECOGNIZED DRUG - OTHER] PO SCH (11:50)
[2018-05-08] MEDS: SULFAMETHOXAZOLE/TRIMETHOPRIM 800MG/160MG D.S. TABLET PO SCH ×2 (11:51→23:18)
[2018-05-08] MEDS: diazePAM 5 MG TABLET PO PRN (18:12)
[2018-05-08] MEDS: THIAMINE HCL 100 MG TABLET (FP) PO SCH (23:18)
[2018-05-08] MEDS: hydrOXYzine PAMOATE 50 MG CAPSULE (FP) PO PRN (23:19)
[2018-05-08] MEDS: IBUPROFEN 400 MG TABLET (FP) PO PRN (23:19)
--- NOTE | 2018-05-09 07:34 | CONSULT ---
[facility] Psychiatric Consult - Data Date of interview: 05/09/18 Admission source: [facility] Identifying data: This is a 47 years old female, single mother of two, living alone, on SSI support, with unclear past psychiatric hospitalization history, history of Bipolar Disorder, reports abusing Alcohol, Crack, Cannabis and Nicoine, reports withdrawal symptoms and seeking for Detox. Substance Abuse History: - Smoking Cessation. Smoking history: Current every day smoker. Have you smoked in the past 12 months: Yes. Aproximately how many cigarettes per day: 5. Hx Chewing Tobacco Use: No. Initiated information on smoking cessation: No Medical History: Weight loss history, HIV+, HTN, ambulating with Cane after both knees injury on 2005, Psychiatric History: Patient reports Bipolar Disorder History, reports taking prior to admission: Seroquel 200mg poqd, 300mg po qhs since long time ago, reports taking those dosages during previous dtoxes and was never oversedated, Taking Trazodone 50mg po qhs as well. Denies suicidal, homicadal history Physical/Sexual Abuse/Trauma History: Denies, inclear Additional Comment: Seroquel 200mg poqd, 300mg po qhs. Trazodone 50mg po qhs Mental Status Exam - Mental Status Exam Alert and Oriented to: Person Cognitive Function: Fair Patient Appearance: Unkempt Mood: Anxious Affect: Labile Patient Behavior: Cooperative Speech Pattern: Excessive, Pressured Voice Loudness: Mildly Loud Thought Process: Goal Oriented Thought Disorder: Being Controlled Hallucinations: Denies Suicidal Ideation: Denies Homicidal Ideation: Denies Insight/Judgement: Fair Sleep: Difficulty falling asleep Appetite: Weight loss Muscle strength/Tone: Mild Hypertonicity Gait/Station: Antalgic Additional Comments: Seroquel 200mg poqd, 300mg po qhs. Trazodone 50mg po qhs Psychiatric Findings - Problem List ([place] 1, 2,3) (1) Alcohol dependence Current Visit: No Status: Chronic (2) Bipolar II disorder Current Visit: No Status: Chronic (3) Cannabis dependence Current Visit: No Status: Chronic (4) Cocaine dependence Current Visit: No Status: Chronic Qualifiers: Substance use status: uncomplicated Qualified Code(s): F14.20 - Cocaine dependence, uncomplicated (5) HIV (human immunodeficiency virus infection) Current Visit: No Status: Chronic (6) Hypertension Current Visit: No Status: Chronic (7) Weight loss, unintentional Current Visit: No Status: Chronic - Initial Treatment Plan Initial Treatment Plan: Seroquel 200mg poqd, 300mg po qhs. Trazodone 50mg po qhs
[2018-05-09] MEDS: hydrOXYzine PAMOATE 50 MG CAPSULE (FP) PO PRN (09:06)
[2018-05-09] MEDS ORDERED: metroNIDAZOLE 250 MG TABLET PO ONE (09:49)
[2018-05-09] MEDS: PRENATAL VITAMINS W/ FOLIC ACID TABLET (FP) PO SCH (10:19)
[2018-05-09] MEDS: diazePAM 5 MG TABLET PO SCH ×2 (10:19→22:19)
[2018-05-09] MEDS: [UNRECOGNIZED DRUG - OTHER] PO SCH (10:22)
[2018-05-09] MEDS: EFAVIRENZ PO SCH (10:22)
[2018-05-09] MEDS: EMTRICITABINE PO SCH (10:22)
[2018-05-09] MEDS ORDERED: QUEtiapine FUMARATE 200 MG TABLET PO ONE (10:28)
[2018-05-09 10:40] LABS: URINE APPEARANCE CLOUDY; URINE BILIRUBIN NEGATIVE (<2.0 mg/dL); URINE COLOR YELLOW; URINE GLUCOSE (UA) NEGATIVE (NEGATIVE); URINE KETONE NEGATIVE (NEGATIVE); URINE LEUK ESTERASE TRACE (NEGATIVE); URINE NITRITE NEGATIVE (NEGATIVE); URINE PROTEIN NEGATIVE (NEGATIVE); URINE UROBILINOGEN NEGATIVE mg/dL (0.2-1.0)
--- NOTE | 2018-05-09 10:44 | PN ---
[facility] CIWA - CIWA Score Nausea/Vomitin-No Nausea/No Vomiting Muscle Tremors: 3 Anxiety: 3 Agitation: 3 Paroxysmal Sweats: 3 Orientation: 0-Oriented Tacttile Disturbances: 0-None Auditory Disturbances: 0-None Visual Disturbances: 0-None Headache: 0-None Present CIWA-Ar Total Score: 12 S Progress Note (SOAP) Subjective: vaginal foul odor with discharge sweats anxiety interrupted sleep hemorrhoids dry skin open cut to heel of right foot Objective: 05/09/18 10:46 Vital Signs Temperature 98.1 F 05/09/18 09:28 Pulse Rate 88 05/09/18 09:28 Respiratory Rate 16 05/09/18 09:28 Blood Pressure 125/76 05/09/18 09:28 O2 Sat by Pulse Oximetry (%) Laboratory Tests 05/08/18 05/08/18 05/08/18 07:50 07:50 07:50 WBC 3.5 L RBC 4.44 Hgb 12.2 Hct 36.7 MCV 82.7 MCH 27.4 MCHC 33.1 RDW 19.9 H Plt Count 303 MPV 8.5 Sodium 139 Potassium 4.3 Chloride 107 Carbon Dioxide 24 Anion Gap 7 L BUN 32 H Creatinine 1.3 Creat Clearance w eGFR 43.90 Random Glucose 115 H Calcium 9.2 Total Bilirubin 0.2 AST 61 H ALT 41 Alkaline Phosphatase 114 Total Protein 7.2 Albumin 3.5 Urine Color Urine Appearance Urine pH Ur Specific [place] Urine Protein Urine Glucose (UA) Urine Ketones Urine Blood Urine Nitrite Urine Bilirubin Urine Urobilinogen Ur Leukocyte Esterase RPR Titer Nonreactive 05/09/18 07:00 WBC RBC Hgb Hct MCV MCH MCHC RDW Plt Count MPV Sodium Potassium Chloride Carbon Dioxide Anion Gap BUN Creatinine Creat Clearance w eGFR Random Glucose Calcium Total Bilirubin AST ALT Alkaline Phosphatase Total Protein Albumin Urine Color Yellow Urine Appearance Cloudy Urine pH 5.0 Ur Specific [place] 1.029 Urine Protein Negative Urine Glucose (UA) Negative Urine Ketones Negative Urine Blood Negative Urine Nitrite Negative Urine Bilirubin Negative Urine Urobilinogen Negative Ur Leukocyte Esterase Trace RPR Titer aaox3 ambulating no acute distress Assessment: 05/09/18 10:46 withdrawal sx Plan: continue detox increase fluids flagyl bacitracin oint diflucan x one aveeno soap vitamin a&d anusol
[2018-05-09] MEDS ORDERED: COLLOIDAL OATMEAL 1 BAR EACH TP PRN (10:48)
[2018-05-09 10:53] LABS: CALCIUM OXALATE CRYSTALS MANY /hpf (NONE SEEN); EPI CELLS MANY /HPF (FEW); URINE BACTERIA RARE /hpf (NONE SEEN); URINE MUCUS RARE
[2018-05-09] MEDS: NIFEdipine E.R. 30 MG TABLET (FP) PO SCH (10:54)
[2018-05-09] MEDS: NICOTINE 21 MG/24 HOURS TOPICAL PATCH TD SCH (13:31)
[2018-05-09] MEDS: BACITRACIN 0.9 GM PACKET TP SCH ×2 (13:31→22:18)
[2018-05-09] MEDS: metroNIDAZOLE 250 MG TABLET PO SCH ×2 (13:32→22:19)
[2018-05-09] MEDS: VITAMINS A AND D TOPICAL OINTMENT 60 GM TUBE TP SCH ×2 (15:13→18:10)
[2018-05-09] MEDS: HYDROCORTISONE 2.5% TOPICAL CREAM 30 GM TUBE TP SCH ×2 (15:14→22:18)
[2018-05-09] MEDS: THIAMINE HCL 100 MG TABLET (FP) PO SCH (22:18)
[2018-05-09] MEDS: traZODone HCL 50 MG TABLET (FP) PO SCH (22:19)
[2018-05-09] MEDS: QUEtiapine FUMARATE 300 MG TABLET PO SCH (22:19)
[2018-05-10] MEDS: VITAMINS A AND D TOPICAL OINTMENT 60 GM TUBE TP SCH ×5 (06:40→23:04)
[2018-05-10] MEDS: QUEtiapine FUMARATE 200 MG TABLET PO SCH (06:43)
[2018-05-10] MEDS: metroNIDAZOLE 250 MG TABLET PO SCH ×3 (06:43→22:14)
[2018-05-10] MEDS: diazePAM 5 MG TABLET PO PRN ×2 (06:46→15:32)
[2018-05-10] MEDS: ACETAMINOPHEN 325 MG TABLET (FP) PO PRN ×2 (06:47→18:10)
[2018-05-10] MEDS: NIFEdipine E.R. 30 MG TABLET (FP) PO SCH (11:14)
[2018-05-10] MEDS: BACITRACIN 0.9 GM PACKET TP SCH ×2 (11:14→22:13)
[2018-05-10] MEDS: NICOTINE 21 MG/24 HOURS TOPICAL PATCH TD SCH (11:14)
[2018-05-10] MEDS: EMTRICITABINE PO SCH (11:15)
[2018-05-10] MEDS: EFAVIRENZ PO SCH (11:15)
[2018-05-10] MEDS: [UNRECOGNIZED DRUG - OTHER] PO SCH (11:15)
[2018-05-10] MEDS: diazePAM 5 MG TABLET PO SCH ×2 (11:15→22:14)
[2018-05-10] MEDS: PRENATAL VITAMINS W/ FOLIC ACID TABLET (FP) PO SCH (11:15)
[2018-05-10] MEDS: HYDROCORTISONE 2.5% TOPICAL CREAM 30 GM TUBE TP SCH ×2 (11:16→22:13)
[2018-05-10] MEDS ORDERED: LIDOCAINE 5% TOPICAL PATCH TP ONE (11:37)
--- NOTE | 2018-05-10 11:40 | PN ---
[facility] Progress Note (SOAP) Subjective: B/L knee pain sweats Objective: 05/10/18 15:08 Vital Signs Temperature 98.9 F 05/10/18 13:54 Pulse Rate 93 H 05/10/18 13:54 Respiratory Rate 16 05/10/18 13:54 Blood Pressure 112/67 05/10/18 13:54 O2 Sat by Pulse Oximetry (%) aaox3 ambulating no acute distress Assessment: 05/10/18 15:08 mild withdrawal sx Plan: continue detox lidocaine patch naproxen bid d/c in am
[2018-05-10] MEDS: NAPROXEN 500 MG TABLET (FP) PO SCH ×2 (12:17→22:14)
[2018-05-10] MEDS ORDERED: LIDOCAINE PATCH REMOVAL MC SCH (22:00)
[2018-05-10] MEDS: QUEtiapine FUMARATE 300 MG TABLET PO SCH (22:14)
[2018-05-10] MEDS: traZODone HCL 50 MG TABLET (FP) PO SCH (22:14)
[2018-05-10] MEDS: hydrOXYzine PAMOATE 50 MG CAPSULE (FP) PO PRN (22:14)
[2018-05-10] MEDS: THIAMINE HCL 100 MG TABLET (FP) PO SCH (22:15)
[2018-05-11] MEDS: QUEtiapine FUMARATE 200 MG TABLET PO SCH (06:37)
[2018-05-11] MEDS: metroNIDAZOLE 250 MG TABLET PO SCH (06:38)
[2018-05-11] MEDS: VITAMINS A AND D TOPICAL OINTMENT 60 GM TUBE TP SCH (06:39)
[2018-05-11 07:39] VITALS: BP 143/92; PULSE 78; TEMP 97.7
--- NOTE | 2018-05-11 09:30 | DS ---
[facility] Detox Discharge Summary Admission Date: 05/07/18 Discharge Date: 05/11/18 - History Present History: Alcohol Dependence, Cannabis Dependence, Cocaine Dependence - Physical Exam Results Vital Signs: Vital Signs Temperature 97.7 F 05/11/18 07:38 Pulse Rate 78 05/11/18 07:38 Respiratory Rate 18 05/11/18 07:38 Blood Pressure 143/92 05/11/18 07:38 O2 Sat by Pulse Oximetry (%) - Treatment Hospital Course: Detox Protocol Followed, Detoxed Safely, Responded well, Discharged Condition Good, Rehab Referral Accepted - Medication Discharge Medications: Ambulatory Orders Efavirenz/Emtricitab/Tenofovir [Atripla Tablet -] 1 tab PO DAILY #30 tab Nifedipine [Procardia Xl] 30 mg PO DAILY #30 tab.er.24 05/12/17 Efavirenz/Emtricitab/Tenofovir [Atripla -] 1 tab PO DAILY 05/08/18 Quetiapine Fumarate [Seroquel -] 200 mg PO AM #30 tablet 05/09/18 Quetiapine Fumarate [Seroquel] 300 mg PO HS #30 tablet 05/09/18 traZODone HCL [Desyrel -] 50 mg PO HS #30 tablet 05/09/18 - Diagnosis (1) Alcohol dependence with uncomplicated withdrawal Current Visit: Yes Status: Chronic (2) Bipolar II disorder Current Visit: No Status: Chronic (3) Cannabis dependence, uncomplicated Current Visit: Yes Status: Chronic (4) Cocaine dependence Current Visit: Yes Status: Chronic Qualifiers: Substance use status: uncomplicated Qualified Code(s): F14.20 - Cocaine dependence, uncomplicated (5) HIV (human immunodeficiency virus infection) Current Visit: Yes Status: Chronic Qualifiers: HIV symptom status: unspecified Qualified Code(s): B20 - Human immunodeficiency virus [HIV] disease (6) Hypertension Current Visit: Yes Status: Chronic Qualifiers: Hypertension type: essential hypertension Qualified Code(s): I10 - Essential (primary) hypertension (7) Nicotine dependence Current Visit: Yes Status: Chronic Qualifiers: Nicotine product type: cigarettes Substance use status: uncomplicated Qualified Code(s): F17.210 - Nicotine dependence, cigarettes, uncomplicated - AMA Did Patient Leave Against Medical Advice: No (referred to outpatient rehab.)
[2018-05-11] MEDS: NIFEdipine E.R. 30 MG TABLET (FP) PO SCH (09:31)
[2018-05-11] MEDS ORDERED: LIDOCAINE 5% TOPICAL PATCH TP SCH (10:00)
[2018-05-11] MEDS ORDERED: diazePAM 5 MG TABLET PO SCH (10:00)
== END 2018-05-11 10:30 | disposition home or self-care (01) | DRG 774 ==
LOC: YASAS 13:19 → Y6N 20:11 → UNDODISIN 05-11 09:34
PROC: HZ2ZZZZ Detoxification Services for Substance Abuse Treatment (ICD-10-PCS; principal; 2018-05-07)
DX: F10.230 Alcohol dependence with withdrawal, uncomplicated (principal); F14.20 Cocaine dependence, uncomplicated; F12.20 Cannabis dependence, uncomplicated; F17.210 Nicotine dependence, cigarettes, uncomplicated; F31.81 Bipolar II disorder; Z21 Asymptomatic human immunodeficiency virus [HIV] infection status; I10 Essential (primary) hypertension; L85.3 Xerosis cutis; M17.0 Bilateral primary osteoarthritis of knee; R63.4 Abnormal weight loss; Z68.25 Body mass index [BMI] 25.0-25.9, adult; R26.89 Other abnormalities of gait and mobility; Z99.89 Dependence on other enabling machines and devices
CPT/HCPCS: 36415; 80053; 81003; 81015; 85027; 86593